=== PATIENT | male | born 1990 | race Caucasian/White ===

== ENCOUNTER 2016-08-07 19:02 | Emergency (ER) | payer OTHER | END 2016-08-07 21:48 | disposition home or self-care (01) | LOC: ER 19:02 | DX: S32.030A Wedge compression fracture of third lumbar vertebra, initial encounter for closed fracture (principal); Z88.0 Allergy status to penicillin; V49.9XXA Car occupant (driver) (passenger) injured in unspecified traffic accident, initial encounter | CPT/HCPCS: 74176; 99284 ==